=== PATIENT | female | born 1995 | race Caucasian/White ===

== ENCOUNTER 2016-12-27 15:28 | Emergency (ER) | payer MEDICAID ==
[~2016-12-27] VITALS: Ht 165.1 cm; Wt 77.6 kg
[2016-12-27 15:45] VITALS: BP 100/65
[2016-12-27] MEDS ORDERED: ACETAMINOPHEN ES 500 MG TABLET ONE (17:25)
[2016-12-27] MEDS ORDERED: ACETAMINOPHEN ES 500 MG TABLET PO ONE (17:30)
== END 2016-12-27 19:00 | disposition home or self-care (01) ==
LOC: ER 15:31
DX: S06.0X9A Concussion with loss of consciousness of unspecified duration, initial encounter (principal); F12.10 Cannabis abuse, uncomplicated; W20.8XXA Other cause of strike by thrown, projected or falling object, initial encounter; Y93.89 Activity, other specified; Y92.9 Unspecified place or not applicable; Y99.9 Unspecified external cause status
CPT/HCPCS: 70450; 99284; A4606; Z7610

== ENCOUNTER 2017-06-19 17:21 | Emergency (ER) | payer MEDICAID ==
[~2017-06-19] VITALS: Ht 165.1 cm; Wt 79.4 kg
[2017-06-19 17:21] VITALS: BP 117/74
[2017-06-19 17:59] LABS: APPEARANCE,URINE Clear (CLEAR); BILIRUBIN,URINE Negative (NEGATIVE); BLOOD, URINE Small Ery/uL (NEGATIVE); COLOR,URINE Yellow (YELLOW); KETONES,URINE Negative (NEGATIVE); LEUKOCYTE ESTERASE ,URINE Trace (NEGATIVE); NITRITE, URINE Negative (NEGATIVE); PROTEIN,URINE Negative (NEGATIVE); UGLUCOSE Negative (NEGATIVE); UROBILINOGEN,URINE 0.2 EU/dL (0.2)
[2017-06-19 18:02] LABS: PREGNANCY TEST URINE QUAL NEGATIVE (NEGATIVE)
[2017-06-19 18:13] LABS: BACTERIA,URINE None seen /HPF (None Seen); SQUAMOUS EPITHELIAL CELL,UR Few /HPF (None Seen)
[2017-06-23 06:08] LABS: *NEISSERIA GONORRHOEAE NAA Negative (Negative); CHLAMYDIA TRACHOMATIS NAA Negative (Negative)
== END 2017-06-19 19:26 | disposition home or self-care (01) ==
LOC: ER 17:24
DX: N89.8 Other specified noninflammatory disorders of vagina (principal); A64 Unspecified sexually transmitted disease
CPT/HCPCS: 81001; 84703; 87210; 87491; 87591; 99284; A4606; Z7610; 81000-TC

== ENCOUNTER 2017-10-13 06:32 | Emergency (ER) | payer MEDICAID, OTHER ==
[~2017-10-13] VITALS: Ht 165.1 cm; Wt 81.6 kg
--- NOTE | 2017-10-13 06:55 | NUR ---
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 NO SOB NOTED AT THIS TIME WITH ADEQUATE CHEST RISE/FALL. VSS NAD. WILL ENDORSE CARE TO AM NURSE
[2017-10-13] MEDS ORDERED: ONDANSETRON 4 MG TAB.RAPDIS ONE (07:00)
[2017-10-13] MEDS: ONDANSETRON 4 MG TAB.RAPDIS SL ONE (07:01)
--- NOTE | 2017-10-13 07:13 | NUR ---
LAB AT BEDSIDE FOR BLOOD DRAW
[2017-10-13 07:27] LABS: BASOPHILS % (AUTO) 0.3 % (0.0-2.0); EOSINOPHILS # (AUTO) 0.1 /CMM (0.0-0.7); EOSINOPHILS % (AUTO) 1.1 % (0.0-6.0); HEMATOCRIT 39 % (33-45); HEMOGLOBIN 13.5 g/dL (11.5-14.8); LYMPHOCYTES # (AUTO) 2.2 /CMM (0.8-4.8); MEAN CORPUSCULAR HEMOGLOBIN 31 PG (26.0-33.0); MEAN CORPUSCULAR HGB CONC 35 g/dl (31.0-36.0); MEAN CORPUSCULAR VOLUME 88 fL (82-100); MONOCYTES # (AUTO) 0.5 /CMM (0.1-1.30); MONOCYTES % (AUTO) 6.6 % (2.0-12.0); NEUTROPHILS # (AUTO) 4.2 /CMM (1.8-8.9); PLATELET COUNT (AUTO) 220 /CMM (150-450); RDW COEFFICIENT OF VARIATION 12.6 (11.5-15.0); RED BLOOD CELL COUNT(AUTO) 4.42 MIL/uL (4.0-5.2); WHITE BLOOD COUNT (AUTO) 6.9 K/uL (4.3-11.0)
[2017-10-13 07:46] LABS: ALBUMIN 3.9 g/dL (3.4-5.0); BILIRUBIN,DIRECT 0.1 mg/dL (0.0-0.2); BILIRUBIN,TOTAL 0.2 mg/dL (0.2-1.0); CALCIUM, SERUM 8.8 mg/dL (8.5-10.1); CREATININE 0.7 mg/dL (0.6-1.3); POTASSIUM 4.3 mmol/L (3.5-5.1); TOTAL PROTEIN, SERUM 8.4 g/dL (6.4-8.2)
[2017-10-13] MEDS ORDERED: LIDOCAINE VISCOUS 2% UD 15 ML UDC ONE (07:59)
[2017-10-13] MEDS ORDERED: FAMOTIDINE (20 MG) 20 MG TABLET ONE (07:59)
[2017-10-13] MEDS ORDERED: MAG HYDROX/AL HYDROX/SIMETH 30 ML UDC ONE (07:59)
[2017-10-13] MEDS: MAG HYDROX/AL HYDROX/SIMETH 30 ML UDC PO ONE (08:04)
[2017-10-13] MEDS: LIDOCAINE VISCOUS 2% UD 15 ML UDC MM ONE (08:04)
[2017-10-13] MEDS: FAMOTIDINE (20 MG) 20 MG TABLET PO ONE (08:04)
--- NOTE | 2017-10-13 08:28 | NUR ---
DR SKY AT FOR AN UPDATE AND RE-EVAL.
--- NOTE | 2017-10-13 08:35 | NUR ---
Patient discharged to home in stable condition. Written and verbal after care instructions given. Patient verbalizes understanding of instruction.
[2017-10-13 08:48] VITALS: BP 115/71
== END 2017-10-13 08:50 | disposition home or self-care (01) ==
LOC: ER 06:36
DX: K29.70 Gastritis, unspecified, without bleeding (principal); G89.29 Other chronic pain; Z90.49 Acquired absence of other specified parts of digestive tract
CPT/HCPCS: 36415; 80048; 80076; 83690; 84703; 85025; 99284; A4606; Q0162; Z7610

== ENCOUNTER 2017-12-01 22:53 | Emergency (ER) | payer OTHER ==
[~2017-12-01] VITALS: Ht 165.1 cm; Wt 87.1 kg
--- NOTE | 2017-12-02 00:10 | NUR ---
PT BB SELF FROM HOME WITH C/O"SORETHROAT X3 DAYS; TOOK AMOXICILLIN FOR 3 DAYS AND IT'S NOT WORKING". PT AAOX4. RESP EVEN AND UNLABORED. PT STATES PAIN LEVEL 9/10. PT STATES SHE HAS HAD TONSILITIS MANY TIMES BEFORE. SKIN PINK AND WARM. NO S/S OF ACUTE DISTRESS NOTED. PT PLACED ON MONITOR AND POX. FAMILY MEMBER BEDSIDE WITH PT.
[2017-12-02] MEDS ORDERED: ONDANSETRON 4 MG TAB.RAPDIS ONE (00:42)
[2017-12-02] MEDS ORDERED: IBUPROFEN 600 MG TABLET PO ONE ×2 (00:42→01:00)
--- NOTE | 2017-12-02 00:55 | NUR ---
RAPID STREP SWAB DONE AND SENT TO LAB.
[2017-12-02] MEDS ORDERED: ONDANSETRON 4 MG TAB.RAPDIS SL ONE (01:00)
--- NOTE | 2017-12-02 01:01 | NUR ---
PT AMBULATED TO THE BATHROOM TO GIVE A URINE SAMPLE.
[2017-12-02 01:15] LABS: MONOTEST NEGATIVE (NEGATIVE)
--- NOTE | 2017-12-02 02:51 | NUR ---
Patient discharged to home in stable condition. Written and verbal after care instructions given. Patient verbalizes understanding of instruction. Ambulatory with a steady gait. WORK NOTED PROVIDED.
[2017-12-02 02:52] VITALS: BP 115/68
== END 2017-12-02 02:52 | disposition home or self-care (01) ==
LOC: ER 22:53
DX: J02.9 Acute pharyngitis, unspecified (principal); R11.0 Nausea; F12.10 Cannabis abuse, uncomplicated; G89.29 Other chronic pain; Z90.89 Acquired absence of other organs
CPT/HCPCS: 36415; 84703-TC; 86308-TC; 86403-TC; 87070-TC; A4606; Q0162; Z7610

== ENCOUNTER 2017-12-06 06:58 | Emergency (ER) | payer OTHER ==
[~2017-12-06] VITALS: Ht 165.1 cm; Wt 86.6 kg
--- NOTE | 2017-12-06 07:05 | NUR ---
PT BIB FRIEND C/O GENERAL BODY PAIN X 3 DAYS, WORSE TODAY. PT AOX3 RR EVEN AND UNLABORED. NO SOB NOTED. NAD NOTED. NO NVD AT THIS TIME. PT WAITING FOR MD ETIENNE.
--- NOTE | 2017-12-06 07:08 | NUR ---
DR. POWER AT BEDSIDE FOR EVAL.
--- NOTE | 2017-12-06 07:17 | NUR ---
ENDORSED TO DESIRE ABDI FOR LEYDI.
[2017-12-06] MEDS ORDERED: KETOROLAC TROMETHAMINE INJ 30 MG/ML VIAL ONE (07:27)
[2017-12-06] MEDS ORDERED: IV NS 0.9% 1,000 ML BAG IV ONE (07:30)
[2017-12-06] MEDS ORDERED: KETOROLAC TROMETHAMINE INJ 30 MG/ML VIAL IV ONE (07:30)
[2017-12-06 07:33] LABS: BASOPHILS % (AUTO) 0.4 % (0.0-2.0); EOSINOPHILS # (AUTO) 0.1 /CMM (0.0-0.7); EOSINOPHILS % (AUTO) 0.8 % (0.0-6.0); HEMATOCRIT 38 % (33-45); LYMPHOCYTES % (AUTO) 31.8 % (20.0-44.0); MEAN CORPUSCULAR HEMOGLOBIN 30 PG (26.0-33.0); MEAN CORPUSCULAR HGB CONC 35 g/dl (31.0-36.0); MEAN CORPUSCULAR VOLUME 86 fL (82-100); MONOCYTES # (AUTO) 0.4 /CMM (0.1-1.30); MONOCYTES % (AUTO) 5.9 % (2.0-12.0); NEUTROPHILS # (AUTO) 3.9 /CMM (1.8-8.9); NEUTROPHILS % (AUTO) 61.1 % (43.0-81.0); PLATELET COUNT (AUTO) 220 /CMM (150-450); RDW COEFFICIENT OF VARIATION 12.7 (11.5-15.0); RED BLOOD CELL COUNT(AUTO) 4.38 MIL/uL (4.0-5.2); WHITE BLOOD COUNT (AUTO) 6.4 K/uL (4.3-11.0)
[2017-12-06 07:53] LABS: ALBUMIN 3.4 g/dL (3.4-5.0); BILIRUBIN,DIRECT 0.1 mg/dL (0.0-0.2); BILIRUBIN,TOTAL 0.2 mg/dL (0.2-1.0); CREATININE 0.7 mg/dL (0.6-1.3); TOTAL PROTEIN, SERUM 8.5 g/dL (6.4-8.2)
[2017-12-06] MEDS ORDERED: HYDROCODONE/APAP 5/325MG 1 EACH TABLET ONE (08:16)
[2017-12-06 08:19] VITALS: BP 123/71
--- NOTE | 2017-12-06 08:19 | NUR ---
IV removed. Catheter intact and site benign. Pressure and 4x4 applied to site. No bleeding noted.Patient discharged to home in stable condition. Written and verbal after care instructions given. Patient verbalizes understanding of instruction.
[2017-12-06] MEDS ORDERED: HYDROCODONE/APAP 5/325MG 1 EACH TABLET PO ONE (08:30)
[2017-12-06 09:04] LABS: CREATINE KINASE MB 22.1 ng/mL (0-3.6)
== END 2017-12-06 08:20 | disposition home or self-care (01) ==
LOC: ER 07:00
DX: M62.82 Rhabdomyolysis (principal); G89.29 Other chronic pain; F12.10 Cannabis abuse, uncomplicated; Z90.89 Acquired absence of other organs
CPT/HCPCS: 36415; 80048; 80076; 82550; 82553; 85025; 96361; 96374; 99284; A4606; J1885; J7030; Z7610

== ENCOUNTER 2018-01-29 18:07 | Emergency (ER) | payer MEDICAID, OTHER ==
[~2018-01-29] VITALS: Ht 165.1 cm; Wt 86.2 kg
[2018-01-29 18:07] VITALS: BP 116/71
[2018-01-29] MEDS ORDERED: IBUPROFEN 600 MG TABLET PO ONE ×2 (19:00→19:30)
[2018-01-29 21:11] LABS: MONOTEST NEGATIVE (NEGATIVE)
== END 2018-01-29 20:49 | disposition home or self-care (01) ==
LOC: ER 18:12
DX: B97.89 Other viral agents as the cause of diseases classified elsewhere (principal); J02.8 Acute pharyngitis due to other specified organisms; G89.29 Other chronic pain; F12.10 Cannabis abuse, uncomplicated; Z90.89 Acquired absence of other organs
CPT/HCPCS: 36415; 86308-TC; 86403-TC; 87070-TC; A4606; Z7610

== ENCOUNTER 2019-04-25 07:33 | Emergency (ER) | payer MEDICAID, OTHER ==
[~2019-04-25] VITALS: Ht 165.1 cm; Wt 81.2 kg
[2019-04-25] MEDS ORDERED: ONDANSETRON 4 MG TAB.RAPDIS ONE (07:55)
[2019-04-25] MEDS ORDERED: ONDANSETRON 4 MG TAB.RAPDIS SL ONE (08:00)
--- NOTE | 2019-04-25 08:01 | NUR ---
patient came in to the ER c/o "Abdominal Pain/nausea/vomiting started yesterday after eating fish". On room air, breathing evenly and unlabored. Connected to the monitor and pulse ox. ambulatory qwith steady gait. kept comfortable, will continue to monitor accordingly.
--- NOTE | 2019-04-25 08:02 | NUR ---
urine collected and sent to lab.
[2019-04-25 09:11] VITALS: BP 119/83
--- NOTE | 2019-04-25 09:25 | NUR ---
Patient discharged to home in stable condition. Written and verbal after care instructions given. Patient verbalizes understanding of instruction.
== END 2019-04-25 09:24 | disposition home or self-care (01) ==
LOC: ER 07:33
DX: T62.91XA Toxic effect of unspecified noxious substance eaten as food, accidental (unintentional), initial encounter (principal); R11.2 Nausea with vomiting, unspecified; R19.7 Diarrhea, unspecified; F12.10 Cannabis abuse, uncomplicated; Z90.89 Acquired absence of other organs; Y92.89 Other specified places as the place of occurrence of the external cause
CPT/HCPCS: 84703; 99283; Q0162

== ENCOUNTER 2019-05-30 12:24 | Emergency (ER) | payer MEDICAID, OTHER ==
[~2019-05-30] VITALS: Ht 165.1 cm; Wt 81.6 kg
--- NOTE | 2019-05-30 12:35 | NUR ---
BIB SELF 23 YEAR OLD FEMALE C/O ABD PAIN, NAUSEA, AND DIARRHEA x 2 DAYS. ALERT AND OREINTED X4, BREATHING EVEN AND UNLABORED WITH NO DISTRESS NOTED. SKIN INTACT. AWAITING TO BE SEEN BY MD.
--- NOTE | 2019-05-30 13:07 | NUR ---
Patient discharged to home in stable condition. Written and verbal after care instructions given. Patient verbalizes understanding of instruction.
[2019-05-30 13:08] VITALS: BP 110/62
== END 2019-05-30 13:09 | disposition home or self-care (01) ==
LOC: ER 12:24
DX: K52.9 Noninfective gastroenteritis and colitis, unspecified (principal); G89.29 Other chronic pain; F12.90 Cannabis use, unspecified, uncomplicated; Z90.89 Acquired absence of other organs

== ENCOUNTER 2019-07-28 21:16 | Emergency (ER) | payer MEDICAID, OTHER ==
[~2019-07-28] VITALS: Ht 165.1 cm; Wt 80.7 kg
--- NOTE | 2019-07-28 22:46 | NUR ---
PT BIBF. C/O "N/V SINCE THURSDAY. WORSENING TODAY" +DIZZY. PER PATIENT" I FEEL WEAK, I CAN'T EAT OR HOLD ANYTHING." PT AAOX4. ABLE TO AMBULATE. PER PATIENT "I HAVE A BRUISE ON MY LEFT ARM THAT I GOT YESTERDAY, IT'S ON WHERE I HAVE MY IMPLANT, I'M NOT SURE WHY I HAVE IT." BREATHING EVEN AND UNLABORED. NO ACUTE DISTRESS NOTED AT THE TIME.
[2019-07-28 22:55] LABS: APPEARANCE,URINE Clear (CLEAR); BILIRUBIN,URINE SMALL (NEGATIVE); BLOOD, URINE Moderate Ery/uL (NEGATIVE); COLOR,URINE Yellow (YELLOW); KETONES,URINE 15 (NEGATIVE); LEUKOCYTE ESTERASE ,URINE Negative (NEGATIVE); NITRITE, URINE Negative (NEGATIVE); PROTEIN,URINE Negative (NEGATIVE); UGLUCOSE Negative (NEGATIVE)
[2019-07-28] MEDS ORDERED: ONDANSETRON HCL/PF 4 MG/2 ML VIAL IV ONE (23:00)
[2019-07-28] MEDS ORDERED: diphenhydrAMINE HCL 50 MG/ML VIAL IV ONE (23:00)
[2019-07-28] MEDS ORDERED: IV NS 0.9% 1,000 ML BAG IV ONE (23:00)
[2019-07-28] MEDS ORDERED: METOCLOPRAMIDE HCL 10 MG/2 ML VIAL IV ONE (23:00)
[2019-07-28 23:08] LABS: BASOPHILS % (AUTO) 0.3 % (0.0-2.0); EOSINOPHILS % (AUTO) 0.4 % (0.0-6.0); HEMATOCRIT 40 % (33-45); HEMOGLOBIN 13.6 g/dL (11.5-14.8); LYMPHOCYTES # (AUTO) 3.1 /CMM (0.8-4.8); LYMPHOCYTES % (AUTO) 33.9 % (20.0-44.0); MEAN CORPUSCULAR HGB CONC 34 g/dl (31.0-36.0); MEAN CORPUSCULAR VOLUME 90 fL (82-100); MONOCYTES # (AUTO) 0.6 /CMM (0.1-1.30); MONOCYTES % (AUTO) 6.9 % (2.0-12.0); NEUTROPHILS # (AUTO) 5.3 /CMM (1.8-8.9); NEUTROPHILS % (AUTO) 58.5 % (43.0-81.0); PLATELET COUNT (AUTO) 233 /CMM (150-450); RED BLOOD CELL COUNT(AUTO) 4.48 MIL/uL (4.0-5.2); WHITE BLOOD COUNT (AUTO) 9.1 K/uL (4.3-11.0)
[2019-07-28] MEDS ORDERED: ONDANSETRON HCL/PF 4 MG/2 ML VIAL ONE (23:10)
[2019-07-28] MEDS ORDERED: diphenhydrAMINE HCL 50 MG/ML VIAL ONE (23:10)
[2019-07-28] MEDS ORDERED: METOCLOPRAMIDE HCL 10 MG/2 ML VIAL ONE (23:11)
[2019-07-28 23:16] LABS: CALCIUM, SERUM 8.7 mg/dL (8.5-10.1); CREATININE 0.9 mg/dL (0.6-1.3); POTASSIUM 3.4 mmol/L (3.5-5.1)
[2019-07-28 23:16] LABS: BACTERIA,URINE Few /HPF (None Seen); SQUAMOUS EPITHELIAL CELL,UR Moderate /HPF (None Seen); WBC,URINE 0-2 /HPF (0-3)
[2019-07-28 23:22] LABS: ALBUMIN 3.7 g/dL (3.4-5.0); BILIRUBIN,DIRECT 0.1 mg/dL (0.0-0.2); BILIRUBIN,TOTAL 0.5 mg/dL (0.2-1.0); TOTAL PROTEIN, SERUM 7.4 g/dL (6.4-8.2)
--- NOTE | 2019-07-29 00:14 | NUR ---
Patient discharged to home in stable condition. Written and verbal after care instructions given. Patient verbalizes understanding of instruction. Pt ambulatory with a steady gait
[2019-07-29 00:15] VITALS: BP 105/63
== END 2019-07-29 00:15 | disposition home or self-care (01) ==
LOC: ER 21:18
DX: R11.2 Nausea with vomiting, unspecified (principal); F12.90 Cannabis use, unspecified, uncomplicated; G89.29 Other chronic pain; Z90.89 Acquired absence of other organs
CPT/HCPCS: 36415; 80048; 80076; 81001; 83690; 84703; 85025; 96361; 96374; 96375; 99283; J1200; J2405; J2765; J7030; 81000-TC

== ENCOUNTER 2019-09-29 21:59 | Emergency (ER) | payer MEDICAID, OTHER ==
[~2019-09-29] VITALS: Ht 165.1 cm; Wt 80.7 kg
[2019-09-29 22:13] VITALS: BP 103/67
[2019-09-29] MEDS ORDERED: KETOROLAC TROMETHAMINE INJ 60 MG/2 ML VIAL IM ONE (22:30)
[2019-09-29] MEDS ORDERED: KETOROLAC TROMETHAMINE INJ 30 MG/ML VIAL ONE (22:45)
== END 2019-09-29 23:40 | disposition home or self-care (01) ==
LOC: ER 22:04
DX: J06.9 Acute upper respiratory infection, unspecified (principal); G89.29 Other chronic pain; Z90.89 Acquired absence of other organs
CPT/HCPCS: 84703; 87804 ×2; 96372; 99283; J1885

== ENCOUNTER 2019-10-23 18:11 | Emergency (ER) | payer OTHER ==
[~2019-10-23] VITALS: Ht 165.1 cm; Wt 79.4 kg
--- NOTE | 2019-10-23 19:00 | NUR ---
PT [id number], C/O RUQ ABDOMINAL PAIN 07/14 X2 MOS AGO, FELT LUMP ON RUQ AREA. PT AAOX4, VSS, BREATHING EVEN AND UNLABORED ON RA W/ NAD NOTED. PT CONNECTED TO THE MONITOR AND PXO.
--- NOTE | 2019-10-23 20:43 | NUR ---
Patient discharged to home in stable condition. Written and verbal after care instructions given. Patient verbalizes understanding of instruction.
[2019-10-23 20:44] VITALS: BP 126/84
== END 2019-10-23 20:44 | disposition home or self-care (01) ==
LOC: ER 18:12
DX: R10.11 Right upper quadrant pain (principal); G89.29 Other chronic pain; Z90.89 Acquired absence of other organs
CPT/HCPCS: 84703-TC

== ENCOUNTER 2020-02-29 09:45 | Emergency (ER) | payer OTHER ==
[~2020-02-29] VITALS: Ht 165.1 cm; Wt 78.9 kg
--- NOTE | 2020-02-29 09:55 | NUR ---
patient came in to the er c/o c/o abd pain radiating to lower back since this morning 10 ps, Hx of gastritis. on room air, breathing evenly and unlabored. connected to the monitor and pulse ox. kept comfortable, will continue to monitor accordingly.
[2020-02-29] MEDS ORDERED: LIDOCAINE VISCOUS 2% UD 15 ML UDC MM ONE (10:00)
[2020-02-29] MEDS ORDERED: ONDANSETRON HCL/PF 4 MG/2 ML VIAL IVP ONE (10:00)
[2020-02-29] MEDS ORDERED: MORPHINE SULFATE INJ 2 MG/ML DISP.SYRIN IV ONE (10:00)
[2020-02-29] MEDS ORDERED: FAMOTIDINE/PF INJ 20 MG/2 ML VIAL IV ONE ×2 (10:00→10:06)
[2020-02-29] MEDS ORDERED: ONDANSETRON HCL/PF 4 MG/2 ML VIAL ONE (10:05)
[2020-02-29] MEDS ORDERED: LIDOCAINE VISCOUS 2% UD 15 ML UDC ONE (10:05)
[2020-02-29] MEDS ORDERED: MORPHINE SULFATE INJ 4 MG/ML DISP.SYRIN ONE (10:06)
[2020-02-29] MEDS ORDERED: MORPHINE SULFATE INJ 2 MG/ML DISP.SYRIN ONE (10:08)
[2020-02-29 10:13] LABS: BASOPHILS % (AUTO) 0.5 % (0.0-2.0); HEMATOCRIT 38 % (33-45); LYMPHOCYTES # (AUTO) 2.7 /CMM (0.8-4.8); LYMPHOCYTES % (AUTO) 36.1 % (20.0-44.0); MEAN CORPUSCULAR HGB CONC 34 g/dl (31.0-36.0); MEAN CORPUSCULAR VOLUME 89 fL (82-100); MONOCYTES # (AUTO) 0.4 /CMM (0.1-1.30); MONOCYTES % (AUTO) 5.4 % (2.0-12.0); NEUTROPHILS # (AUTO) 4.3 /CMM (1.8-8.9); PLATELET COUNT (AUTO) 158 /CMM (150-450); RED BLOOD CELL COUNT(AUTO) 4.29 MIL/uL (4.0-5.2); WHITE BLOOD COUNT (AUTO) 7.6 K/uL (4.3-11.0)
[2020-02-29] MEDS: IV NS 0.9% 1,000 ML BAG IV ONE ×2 (10:15→10:36)
[2020-02-29 10:19] LABS: CALCIUM, SERUM 8.8 mg/dL (8.5-10.1); CREATININE 0.6 mg/dL (0.6-1.3); POTASSIUM 3.7 mmol/L (3.5-5.1)
[2020-02-29 10:25] LABS: ALBUMIN 3.8 g/dL (3.4-5.0); BILIRUBIN,DIRECT 0.1 mg/dL (0.0-0.2); BILIRUBIN,TOTAL 0.3 mg/dL (0.2-1.0)
[2020-02-29 10:41] LABS: APPEARANCE,URINE Clear (CLEAR); BILIRUBIN,URINE Negative (NEGATIVE); BLOOD, URINE Negative Ery/uL (NEGATIVE); COLOR,URINE Yellow (YELLOW); KETONES,URINE Negative (NEGATIVE); LEUKOCYTE ESTERASE ,URINE Negative (NEGATIVE); NITRITE, URINE Negative (NEGATIVE); PH,URINE 8.5 (5.0-8.0); PROTEIN,URINE Negative (NEGATIVE); UGLUCOSE Negative (NEGATIVE); UROBILINOGEN,URINE 0.2 EU/dL (0.2)
[2020-02-29 11:16] VITALS: BP 101/70
--- NOTE | 2020-02-29 11:16 | NUR ---
patient breathing even and unlabored, denies pain at this time. IV removed. Catheter intact and site benign. Pressure and 4x4 applied to site. No bleeding noted.Patient discharged to home in stable condition. Written and verbal after care instructions given. Patient verbalizes understanding of instruction.
== END 2020-02-29 11:17 | disposition home or self-care (01) ==
LOC: ER 09:45
DX: K29.70 Gastritis, unspecified, without bleeding (principal); G89.29 Other chronic pain; Z90.89 Acquired absence of other organs
CPT/HCPCS: 36415; 76705; 80048; 80076; 81001; 83690; 84703; 85025; 96361; 96374; 96375; 99284; J2270; J2405; J3490; J7030; 81000-TC

== ENCOUNTER 2021-03-13 07:35 | Emergency (ER) | payer OTHER ==
[~2021-03-13] VITALS: Ht 165.1 cm; Wt 81.6 kg
[2021-03-13] MEDS ORDERED: KETOROLAC TROMETHAMINE 15 MG/ML VIAL ONE (08:04)
[2021-03-13] MEDS ORDERED: ONDANSETRON 4 MG TAB.RAPDIS ONE (08:05)
--- NOTE | 2021-03-13 08:10 | NUR ---
SEXUAL ASSAULT NURSE AT BEDSIDE FOR BLOOD DRAW.
[2021-03-13 08:23] LABS: BILIRUBIN,URINE Negative (NEGATIVE); COLOR,URINE YELLOW (YELLOW); LEUKOCYTE ESTERASE ,URINE Negative (NEGATIVE); NITRITE, URINE Negative (NEGATIVE); PROTEIN,URINE Negative (NEGATIVE); UGLUCOSE Negative (NEGATIVE); UROBILINOGEN,URINE 0.2 EU/dL (0.2)
[2021-03-13 08:24] LABS: SQUAMOUS EPITHELIAL CELL,UR Few /HPF (None Seen); WBC,URINE 0-2 /HPF (0-3)
[2021-03-13 08:25] LABS: BASOPHILS % (AUTO) 0.2 % (0.0-2.0); EOSINOPHILS % (AUTO) 0.6 % (0.0-6.0); HEMATOCRIT 41 % (33-45); HEMOGLOBIN 13.6 g/dL (11.5-14.8); LYMPHOCYTES # (AUTO) 1.7 /CMM (0.8-4.8); MEAN CORPUSCULAR HGB CONC 33 g/dl (31.0-36.0); MEAN CORPUSCULAR VOLUME 93 fL (82-100); MONOCYTES # (AUTO) 0.4 /CMM (0.1-1.30); MONOCYTES % (AUTO) 5.6 % (2.0-12.0); NEUTROPHILS # (AUTO) 5.2 /CMM (1.8-8.9); NEUTROPHILS % (AUTO) 70.6 % (43.0-81.0); PLATELET COUNT (AUTO) 174 /CMM (150-450); RED BLOOD CELL COUNT(AUTO) 4.38 MIL/uL (4.0-5.2); WHITE BLOOD COUNT (AUTO) 7.4 K/uL (4.3-11.0)
[2021-03-13 08:25] LABS: BACTERIA,URINE Rare /HPF (None Seen)
[2021-03-13] MEDS: ONDANSETRON 4 MG TAB.RAPDIS SL ONE (08:34)
[2021-03-13] MEDS: KETOROLAC TROMETHAMINE INJ 30 MG/ML VIAL IM ONE (08:34)
[2021-03-13 09:03] LABS: ALBUMIN 3.9 g/dL (3.4-5.0); BILIRUBIN,DIRECT 0.1 mg/dL (0.0-0.2); BILIRUBIN,TOTAL 0.4 mg/dL (0.2-1.0); CALCIUM, SERUM 8.8 mg/dL (8.5-10.1); CREATININE 0.8 mg/dL (0.6-1.3); TOTAL PROTEIN, SERUM 7.8 g/dL (6.4-8.2)
--- NOTE | 2021-03-13 09:20 | NUR ---
FOLLOWE DUP BMP RESULT, STILL PENDING.
[2021-03-13 09:28] LABS: POTASSIUM 4.2 mmol/L (3.5-5.1)
[2021-03-13 09:40] VITALS: BP 116/58
== END 2021-03-13 09:40 | disposition home or self-care (01) ==
LOC: ER 07:39
DX: M54.5 Low back pain (principal); R10.30 Lower abdominal pain, unspecified
CPT/HCPCS: 36415; 80048; 80076; 81001; 83690; 84703; 85025; 96372; 99283; J1885; Q0162

== ENCOUNTER 2021-07-19 07:36 | Emergency (ER) | payer OTHER ==
[~2021-07-19] VITALS: Ht 165.1 cm; Wt 77.6 kg
--- NOTE | 2021-07-19 07:40 | NUR ---
AAOX3, came to ER c/o chronic lower abdominal pain that radiates to her back for 4 years. Patient states that she had diarrhea today. Skin is warm and dry. Awaiting md for [place].
[2021-07-19] MEDS ORDERED: TRAM50TA2 PO (08:14)
--- NOTE | 2021-07-19 08:15 | NUR ---
PT DOESN'T WANT TO WAIT FOR THE LAB RESULTS AND WANTS TO BE DISCHARGED, MD AWARE.
[2021-07-19 08:23] LABS: BASOPHILS % (AUTO) 0.2 % (0.0-2.0); EOSINOPHILS % (AUTO) 0.4 % (0.0-6.0); HEMATOCRIT 41 % (33-45); HEMOGLOBIN 13.8 g/dL (11.5-14.8); LYMPHOCYTES # (AUTO) 1.9 K/uL (0.8-4.8); LYMPHOCYTES % (AUTO) 23.5 % (20.0-44.0); MEAN CORPUSCULAR HGB CONC 34 g/dl (31.0-36.0); MEAN CORPUSCULAR VOLUME 91 fL (82-100); MONOCYTES # (AUTO) 0.4 K/uL (0.1-1.30); MONOCYTES % (AUTO) 5.5 % (2.0-12.0); NEUTROPHILS # (AUTO) 5.7 K/uL (1.8-8.9); NEUTROPHILS % (AUTO) 70.4 % (43.0-81.0); PLATELET COUNT (AUTO) 188 K/uL (150-450); RED BLOOD CELL COUNT(AUTO) 4.49 MIL/uL (4.0-5.2); WHITE BLOOD COUNT (AUTO) 8.1 K/uL (4.3-11.0)
[2021-07-19 08:26] VITALS: BP 109/66
[2021-07-19 08:29] LABS: BILIRUBIN,URINE NEGATIVE (NEGATIVE); COLOR,URINE YELLOW (YELLOW); LEUKOCYTE ESTERASE ,URINE NEGATIVE (NEGATIVE); NITRITE, URINE NEGATIVE (NEGATIVE); PROTEIN,URINE NEGATIVE (NEGATIVE); UGLUCOSE NEGATIVE (NEGATIVE); UROBILINOGEN,URINE 0.2 EU/dL (0.2)
[2021-07-19 08:42] LABS: BACTERIA,URINE Rare /HPF (None Seen); SQUAMOUS EPITHELIAL CELL,UR Moderate /HPF (None Seen); WBC,URINE 0-2 /HPF (0-3)
[2021-07-19 08:46] LABS: ALBUMIN 4.2 g/dL (3.4-5.0); BILIRUBIN,TOTAL 0.4 mg/dL (0.2-1.0); CALCIUM, SERUM 8.8 mg/dL (8.5-10.1); CREATININE 0.8 mg/dL (0.6-1.3); POTASSIUM 3.9 mmol/L (3.5-5.1); TOTAL PROTEIN, SERUM 8.8 g/dL (6.4-8.2)
== END 2021-07-19 08:26 | disposition home or self-care (01) ==
LOC: ER 07:41
DX: G89.29 Other chronic pain (principal); R10.9 Unspecified abdominal pain
CPT/HCPCS: 36415; 80053-TC; 81001; 84703-TC; 85025-TC

== ENCOUNTER 2021-09-11 15:21 | Emergency (ER) | payer OTHER ==
[~2021-09-11] VITALS: Ht 167.6 cm; Wt 79.4 kg
[~2021-09-11 15:21] MED LIST: TRAM50TA2 PO
--- NOTE | 2021-09-11 15:21 | NUR ---
PT BIB SELF C/O R LEG SWELLING S/P BUG BITE. PT IS AAOX4, NOT IN RESPIRATORY DISTRESS, V/S STABLE, KEPT RESTED AND COMFORTABLE. WILL CONTINUE TO MONITOR.
--- NOTE | 2021-09-11 15:34 | NUR ---
SEEN AND EXAMINED BY REYMUNDO SPRINGER.
--- NOTE | 2021-09-11 15:50 | NUR ---
IV LINE ESTABLISHED. Jam YODER.
[2021-09-11] MEDS ORDERED: CLINDAMYCIN 900 MG in IV D5W 50 ML IV ONE (16:00)
[2021-09-11] MEDS ORDERED: CLIN300C12 PO (17:06)
--- NOTE | 2021-09-11 17:12 | NUR ---
The patient is alert and oriented x4. IV removed. Catheter intact and site benign. Pressure and 4x4 applied to site. No bleeding noted.Patient discharged to home in stable condition. Written and verbal after care instructions given. Patient verbalizes understanding of instruction.
[2021-09-11 17:13] VITALS: BP 121/75
== END 2021-09-11 17:13 | disposition home or self-care (01) ==
LOC: ER 15:21
DX: L03.115 Cellulitis of right lower limb (principal)
CPT/HCPCS: 93971; 96365; 99284; J3490; J7060

== ENCOUNTER 2021-09-13 21:00 | Emergency (ER) | payer MEDICAID, OTHER ==
[~2021-09-13] VITALS: Ht 165.1 cm; Wt 77.1 kg
[~2021-09-13 21:00] MED LIST changes: +CLIN300C12 PO
[2021-09-13 23:29] VITALS: BP 126/70
--- NOTE | 2021-09-13 23:29 | NUR ---
Patient discharged to home in stable condition. Written and verbal after care instructions given. Patient verbalizes understanding of instruction.
== END 2021-09-13 23:29 | disposition home or self-care (01) ==
LOC: ER 21:05
DX: L03.115 Cellulitis of right lower limb (principal); G89.29 Other chronic pain; F12.90 Cannabis use, unspecified, uncomplicated

== ENCOUNTER 2022-06-03 08:47 | Emergency (ER) | payer OTHER ==
[~2022-06-03] VITALS: Ht 165.1 cm; Wt 75.7 kg
[2022-06-03 09:08] VITALS: BP 119/62
[2022-06-03] MEDS ORDERED: CARBAMIDE PEROXIDE OTIC 15 ML BOTTLE ONE (09:38)
[2022-06-03] MEDS: CARBAMIDE PEROXIDE OTIC 15 ML BOTTLE OT ONE (09:39)
--- NOTE | 2022-06-03 10:50 | NUR ---
Patient discharged to home in stable condition. Written and verbal after care instructions given. Patient verbalizes understanding of instruction.
== END 2022-06-03 10:50 | disposition home or self-care (01) ==
LOC: ER 08:54
DX: H61.21 Impacted cerumen, right ear (principal); G89.29 Other chronic pain